=== PATIENT | female | born 1995 | race Caucasian/White ===

== ENCOUNTER 2023-03-23 14:32 | Outpatient (REF) | payer MEDICAID, SELFPAY ==
[2023-03-26 08:28] LABS: TS Negative Control Passed; TS Panel A 0; TS Panel B 0; TS Positive Control Passed; TSpotTB Negative (Negative)
== END 2023-03-23 14:33 | disposition home or self-care (01) ==
LOC: HO.HHCL 14:32
PROVIDERS: Visit Provider General Practice
DX: Z02.1 Encounter for pre-employment examination (principal); E16.2 Hypoglycemia, unspecified; Z11.1 Encounter for screening for respiratory tuberculosis
CPT/HCPCS: 36415; 86481

== ENCOUNTER 2024-04-18 18:39 | Outpatient (REF) | payer MEDICAID, SELFPAY ==
--- OUTSIDE RECORDS SUMMARY | 2024-04-18 20:04 | XMS_ITS | Encounter Summary ---
Author Organization [employer] Address [address] [facility] 7t [place] [address] Care Team Providers Care Flower Arranger Name Role Phone Dahiana Pizano MD Primary Care Provider [phone] Reason for Visit * Reason Comments uti symptoms Encounter Details Date Type Department Care Team ([facility] st Contact Info) Description 04/18/2024 9:00 AM EST Office Visit [facility] [address] [place] [address] Cheo Fofana MD [address] [place] [address] Dysuria (Primary Dx); UTI symptoms Social History Tobacco Use Types Packs/Day Years Used Date Smoking Tobacco: Never Passive Smoke Exposure: Never Smokeless Tobacco: Never Alcohol Use Standard Drinks/Week Comments Never 0 (1 standard drink = 0.6 oz pur e alcohol) Depression Answer Date Recorded Patient Health Questionnaire-9 Score 0 09/02/2023 Patient Health Questionnaire-9 Score 0 09/02/2023 Last PHQ-9: Questionnaire Data Not on file 0 09/02/2023 Housing Stability Answer Date Recorded What is your housing situation today? I have lindseykellie vasquez 09/02/[address] you li ve. Do you have problems with any of the following? None of the above 09/02/2023 Food Insecurity Answer Date Recorded Within the past 12 months, y ou worried that your food would run out before you got money to buy more: Never True 03/11/2023 Within the past 12 months,th e food you bought just didn't last and you didn't have enough money to get more: Never True Transportation Answer Date Recorded In the past 12 months, has l ack of transportation kept you from medical appts, meetings, work or from getting things needed for daily living? No 03/11/2023 Utilities Answer Date Recorded In the past 12 months, has t he electric, gas, oil or water company threatened to shut off services in your home? No 03/11/2023 Depression Answer Date Recorded Patient Health Questionnaire-2 Score 0 09/02/2023 Internet Access Answer Date Recorded Internet Access Q1 No 10/21/2023 Internet Access Q2 Not on file 10/21/2023 Comments Unknown Sex and Gender Information Value Date Recorded Sex Assigned at Female 12/21/2021 10:40 AM EDT Legal Sex Female 10:40 AM EDT Gender Identity Female 12/21/2021 10:40 AM EDT Sexual Orientation Choose not to disclose 2021 10:40 AM EDT documented as of this encounter Last Filed Vital Signs Vital Sign Reading Time Taken Comments Blood Pressure 106/65 04/18/2024 8:42 AM EST Pulse 81 04/18/2024 8:42 AM EST Temperature 36.4 ??C (97.6 ??F) 04/18/2024 8:42 AM ES T Respiratory Rate 18 04/18/2024 8:42 AM EST Oxygen Saturation 99% 04/18/2024 8:42 AM EST Inhaled Oxygen Concentration - - Weight 60.3 kg (133 lb) 04/18/2024 8:42 AM EST Height - - Body Mass Index 25.13 09/02/2023 9:22 AM EDT documented in this encounter Progress Notes * Cheo Fofana MD - 04/18/2024 9:00 AM EST Subjective Patient ID: Rosaline Chow is a 28 y.o. female. HPI Rosaline had onset last night of urinary urgency, frequency, burning. Denies fever, chills, n/v, vaginal discharge, abdominal or flank pain. Lives with 3 children. LMP=[id number] Works as [employer]. Never smoked. Patient Active Problem List Diagnosis Pre-employment examination Low back pain at multiple sites Encounter for preventative adult health care examination The following portions of the chart were reviewed this encounter and updated as appropriate: Tobacco Allergies Meds Problems Med Hx Surg Hx Fam Hx Review of Systems Constitutional: Negative for fever. Respiratory: Negative for shortness of breath. Cardiovascular: Negative for chest pain. Gastrointestinal: Negative for abdominal pain. Genitourinary: Positive for dysuria, frequency and urgency. Negative for flank pain and vaginal discharge. Skin: Negative for rash. Neurological: Negative for headaches. Objective Physical Exam Constitutional: Appearance: Normal appearance. HENT: Right Ear: Tympanic membrane, ear canal and external ear normal. Left Ear: Tympanic membrane, ear canal and external ear normal. Nose: Nose normal. Mouth/Throat: Mouth: Mucous membranes are moist. Pharynx: Oropharynx is clear. Eyes: Conjunctiva/sclera: Conjunctivae normal. Pupils: Pupils are equal, round, and reactive to light. Cardiovascular: Rate and Rhythm: Normal rate and regular rhythm. Heart sounds: No murmur heard. Pulmonary: Effort: Pulmonary effort is normal. Breath sounds: Normal breath sounds. Abdominal: General: Abdomen is flat. Palpations: Abdomen is soft. Tenderness: There is no abdominal tenderness. There is no right CVA tenderness or left CVA tenderness. Musculoskeletal: General: Normal range of motion. Cervical back: No tenderness. Skin: Findings: No rash. Neurological: Mental Status: She is alert. Gait: Gait is intact. Psychiatric: Mood and Affect: Mood normal. Behavior: Behavior normal. Procedures Assessment/Plan Diagnoses and all orders for this visit: Dysuria U/a: + nitrite, blood, marissa. Urine C&S pending. Prescribed Macrobid and Pyridium. Return to clinic if not improving. UTI symptoms- POCT urinalysis dipstick manually resulted - Culture, Urine, Routine Other orders - nitrofurantoin, macrocrystal-monohydrate, (Macrobid) 100 MG capsule; Take 1 capsule (100 mg) by mouth 2 times daily for 5 days. - phenazopyridine (Pyridium) 200 MG tablet; Take 1 tablet (200 mg) by mouth with breakfast, with lunch, and with evening meal for 2 days. documented in this encounter Plan of Treatment Scheduled Orders Name Type Priority Associated Diagnoses Orde r Schedule Culture, Urine, Routine Microbiology Routine UTI symptoms Ordered: 04/18/2024 documented as of this encounter Procedures Procedure Name Priority Date/Time Associated Diagnosis Comments POCT URINALYSIS DIPSTICK Routine 04/18/2024 8:51 AM EST UTI symptoms documented in this encounter Results * (ABNORMAL) POCT urinalysis dipstick manually resulted (04/18/2024 8:51 AM EST) Color, UA Yellow Clarity, UA Clear Glucose, UA Negative Bilirubin, UA Negative Ketones, UA Negative Spec Grav, UA 1.010 Blood, UA Positive(A) Negative, None Detected Comment:small pH, UA 6.0 Protein, UA Negative Urobilinogen, UA 0.2 Leukocytes, UA Few 15(A) Negative, Rare, Trace Comment:small Nitrite, UA Positive(A) Negative, None Detected QC Media Lot # [id number] Lot# Expiration Date Urine 04/18/2024 8:51 AM EST Cheo Fofana MD POINT OF CARE TEST ENTER/EDIT OR DERABLES Final Result documented in this encounter Visit Diagnoses Diagnosis Dysuria- Primary UTI symptoms documented in this encounter Additional Health Concerns Assessment Noted Time PHQ-9 Depression Total Score: 0 09/02/19 24 9:23 AM EDT documented as of this encounter Care Teams Flower Arranger Relationship Specialty Start Date End Date Dahiana Pizano MD [address] [place] [id number] PCP - General Family Medicine 03/23/23 documented as of this encounter
--- OUTSIDE RECORDS SUMMARY | 2024-04-18 20:04 | XMS_ITS | Encounter Summary ---
Author Organization [employer] [facility] Address [address] [place] [address] 7 [place] [address] Care Team Providers Care Truck Crane Operator Name Role Phone Dahiana Pizano MD Primary Care Provider [phone] Encounter Details Date Type Department Care Team ([facility] st Contact Info) Description 04/23/2022 Abstract [facility] [address] [place] [address] Dylan Weathers DDS [address] [place] [address] Social History Tobacco Use Types Packs/Day Years Used Date Smoking Tobacco: Never Passive Smoke Exposure: Never Smokeless Tobacco: Never Alcohol Use Standard Drinks/Week Comments Never 0 (1 standard drink = 0.6 oz pur e alcohol) Comments Unknown Sex and Gender Information Value Date Recorded Sex Assigned at Female 12/21/2021 10:40 AM EDT Legal Sex Female 10:40 AM EDT Gender Identity Female 12/21/2021 10:40 AM EDT Sexual Orientation Choose not to disclose 2021 10:40 AM EDT COVID-19 Exposure Response Date Recorded In the last 10 days, have yo u been in contact with someone who was confirmed or suspected to have Coronavirus/COVID-19? No / Unsure 03/31/2022 1:03 PM EST documented as of this encounter Plan of Treatment Not on file documented as of this encounter Visit Diagnoses Not on filedocumented in this encounter Care Teams Truck Crane Operator Relationship Specialty Start Date End Date Dahiana Pizano MD [address] [place] [address] PCP - General Family Medicine 03/23/23 documented as of this encounter
--- OUTSIDE RECORDS SUMMARY | 2024-04-18 20:04 | XMS_ITS | Clinical Summary ---
Author Organization [employer] Address [address] [facility] 7t [place] [address] Care Team Providers Care Wheelchair Van Driver Name Role Phone Dahiana Pizano MD Primary Care Provider [phone] Allergies No known active allergies Medications chlorhexidine (Periogard) 0.12 % solution Place 15 mL into mouth between cheek and gum every 12 (twelve) hours. 09/17/2021 Active nitrofurantoin, macrocrystal-mo nohydrate, (Macrobid) 100 MG capsule Take 1 capsule (100 mg) by mouth 2 times daily for 5 days. 10 capsule 04/18/2024 5 Active phenazopyridine (Pyridium) 200 MG tablet Take 1 tablet (200 mg) by mouth with breakfast, with lunch, and with evening meal for 2 days. 6 tablet 04/18/2024 5 Active Active Problems Problem Noted Date Diagnosed Date Encounter for preventative adult health care exa gaviotaation 09/02/2023 Assessment & Plan (09/02/2023 10:51 AM EDT): See HPI Pre-employment examination 03/23/2023 Low back pain at multiple sites 03/23/2023 Encounters Date Type Department Care Team Description 04/18/2024 9:00 AM EST Office Visit [facility] [address] [place], [place] [phone] Cheo Fofana MD Dysuria (Primary Dx); UTI symptoms from Last 3 Months Immunizations Name Administration Dates Next Due MMR 06/01/2021 Social History Tobacco Use Types Packs/Day Years Used Date Smoking Tobacco: Never Passive Smoke Exposure: Never Smokeless Tobacco: Never Tobacco Cessation:Counseling Given: No Alcohol Use Standard Drinks/Week Comments Never 0 (1 standard drink = 0.6 oz pur e alcohol) Depression Answer Date Recorded Patient Health Questionnaire-9 Score 0 09/02/2023 Patient Health Questionnaire-9 Score 0 09/02/2023 Last PHQ-9: Questionnaire Data Not on file 0 09/02/2023 Housing Stability Answer Date Recorded What is your housing situation today? I have lindsey vasquez 09/02/[address] you [...] not to disclose 2021 10:40 AM EDT Last Filed Vital Signs Vital Sign Reading Time Taken Comments Blood Pressure 106/65 04/18/2024 8:42 AM EST Pulse 81 04/18/2024 8:42 AM EST Temperature 36.4 ??C (97.6 ??F) 04/18/2024 8:42 AM ES T Respiratory Rate 18 04/18/2024 8:42 AM EST Oxygen Saturation 99% 04/18/2024 8:42 AM EST Inhaled Oxygen Concentration - - Weight 60.3 kg (133 lb) 04/18/2024 8:42 AM EST Height 154.9 cm (5' 1 ) 09/02/2023 9:22 AM EDT Body Mass Index 25.13 09/02/2023 9:22 AM EDT Plan of Treatment Health Maintenance Due Date Last Done Comments Dental Oral Exam 1995 Dental Prophylaxis 1995 Dental X-Ray: Bitewings 1995 Dental X-Ray: Full Mouth 1995 HIV Screening 1995 Family Planning (PISQ) 09/02/2010 Hepatitis C Screening 09/02/2013 DTaP/Tdap/Td Vaccines (1 - Tdap) 09/02/2014 Hepatitis B Vaccines (1 of 3 - 19+ 3-dose series) 09/02/2014 Pap Smear 09/02/2016 COVID-19 Vaccine (1 - 2023-2 5 season) 2023 Influenza Vaccine (#1) 2023 Alcohol/Substance Use Screening 09/01/2024 09/02/2023 Depression Screening 09/01/2024 09/02/2023, 09/02/2023 SDOH Screening 09/01/2024 09/02/2023 Tobacco Screening 04/18/2025 04/18/2024 Zoster Vaccines (1 of 2) 09/02/2045 RSV Patients and Patients Aged 60 years or older (1 - 1-dose 75+ series) 09/02/2070 HIB Vaccines Aged Out No longer eligi ble based on patient's age to complete this topic HPV Vaccines Aged Out No longer eligi ble based on patient's age to complete this topic Hepatitis A Vaccines Aged Out No long er eligible based on patient's age to complete this topic IPV Vaccines Aged Out No longer eligi ble based on patient's age to complete this topic Meningococcal Vaccine Aged Out No seth lexus eligible based on patient's age to complete this topic Pneumococcal Vaccine: Pediatrics (0 to 5 Years) and At-Risk Patients (6 to 49) Years) Aged Out No longer eligible b ased on patient's age to complete this topic RSV under 20 months Aged Out No longe r eligible based on patient's age to complete this topic Rotavirus Vaccines Aged Out No longer eligible based on patient's age to complete this topic Procedures Procedure Name Priority Date/Time Associated Diagnosis Comments POCT URINALYSIS DIPSTICK Routine 04/18/2024 8:51 AM EST UTI symptoms from Last 3 Months Results * (ABNORMAL) POCT urinalysis dipstick manually [...] CARE TEST ENTER/EDIT OR DERABLES Final Result from Last 3 Months Insurance [facility] C3 DENTAL-[facility] MEDICAID STAND ADULT Care Teams Wheelchair Van Driver Relationship Specialty Start Date End Date Dahiana Pizano MD [address] [place] [id number] PCP - General Family Medicine 03/23/23
--- OUTSIDE RECORDS SUMMARY | 2024-04-18 20:04 | XMS_ITS | Clinical Summary ---
Author Organization [facility] Address [address] [place] [address] Care Team Providers Care Paint Preparer Name Role Phone Unavailable Primary Care Provider Unavailabl e Surgical History Surgery Date Site/Laterality Comments OTHER SURGICAL HISTORY PROCEDURE: DENIES PREVIOUS SURGERY Medical History Medical History Date Comments Hypoglycemia DX:Hypoglycemia Vitamin B 12 deficiency DX:Vitam in B 12 deficiency Vitamin D deficiency DX:Vitamin D deficiency Iron deficiency anemia DX:Iron d eficiency anemia Type O blood, Rh positive 2018 DX:Typ e O blood, Rh positive Family History Medical History Relation Name Comments Thyroid disease Brother 1 No Known Problems Brother 2 No Known Problems Father Lung cancer Maternal Grandfather someth ing like that, from smoking too much Diabetes Maternal Grandmother No Known Problems Mother No Known Problems Paternal Grandfather No Known Problems Paternal Grandmother Breast cancer Neg Hx Cervical cancer Neg Hx Ovarian cancer Neg Hx Uterine cancer Neg Hx Relation Name Status Comments Brother 1 Alive Brother 2 Alive Father Alive Maternal Grandfather Maternal Grandmother Mother Alive Paternal Grandfather Paternal Grandmother Social History Tobacco Use Types Packs/Day Years Used Date Smoking Tobacco: Never Smokeless Tobacco: Never Alcohol Use Standard Drinks/Week Comments No 0 (1 standard drink = 0.6 oz pur e alcohol) Comments Unknown Sex and Gender Information Value Date Recorded Sex Assigned at Not on file Legal Sex Female 4:56 AM EST Gender Identity Not on file Sexual Orientation Not on file Obstetrics History Plan of Treatment Health Maintenance Due Date Last Done Comments DTaP,Tdap,and Td Vaccines (1 - Tdap) 09/02/2014 Hepatitis B Vaccines (1 of 3 - 19+ 3-dose series) 09/02/2014 Cervical Cancer Screening: P ap Smear 09/02/2016 COVID-19 Vaccine (2023-2 5 season) 2023 Influenza Vaccine (#1) 2023 HIB Vaccines Aged Out No longer eligi [...] on patient's age to complete this topic MMR Vaccines Aged Out No longer eligi ble based on patient's age to complete this topic Meningococcal ACWY Vaccine Aged Out N o longer eligible based on patient's age to complete this topic Meningococcal B Vacine Aged Out No lo nger eligible based on patient's age to complete this topic Pneumococcal Vaccine: Pediat rics (0 to 5 Years) and At-Risk Patients (6 to 64 Years) Aged Out No longer eligible b ased on patient's age to complete this topic RSV Immunization Patients Un kristi 20 months Aged Out No longer eligible b ased on patient's age to complete this topic Varicella Vaccines Aged Out No longer eligible based on patient's age to complete this topic
== END 2024-04-18 18:40 | disposition home or self-care (01) ==
LOC: HO.HHCLNP 18:39
PROVIDERS: Visit Provider Emergency Medicine
DX: R39.9 Unspecified symptoms and signs involving the genitourinary system (principal)
CPT/HCPCS: 87086; 87088; 87186

== ENCOUNTER 2024-05-29 11:21 | Outpatient (REF) | payer MEDICAID, SELFPAY ==
[2024-05-29 13:54] LABS: Estimated Average Glucose 103 mg/dL; Hemoglobin A1C 113.1704 umol/L; Hemoglobin A1c % 5.2 % (<6.0); Total Hemoglobin (HGBA1C) 3367.7981 umol/L
--- OUTSIDE RECORDS SUMMARY | 2024-05-29 13:56 | XMS_ITS | Clinical Summary ---
Author Organization [employer] [facility] Address [address] [facility] 7 [place] [address] Care Team Providers Care Metal Numerical Control Programmer Name Role Phone Dahiana Pizano MD Primary Care Provider [phone] Allergies No known active allergies Medications chlorhexidine (Periogard) 0.12 % solution Place 15 mL into mouth between cheek and gum every 12 (twelve) hours. 09/17/2021 Active Active Problems Problem Noted Date Diagnosed Date Encounter for preventative adult health care exa mination 09/02/2023 Assessment & Plan (09/02/2023 10:51 AM EDT): See HPI Pre-employment examination 03/23/2023 Low back pain at multiple sites 03/23/2023 Encounters Date Type Department Care Team Description 05/24/2024 Telephone [facility] [address] [place] [phone] Dahiana Pizano MD Lab Orders; Appointment Request 05/04/2024 Population Health Risk Score [facility] (C3) Department [address] [phone] Provider, Population Health Generic 04/18/2024 9:00 AM EST Office Visit [facility] [address] [place], [place] [phone] Cheo Fofana MD Dysuria (Primary Dx); UTI [...] Procedure Name Priority Date/Time Associated Diagnosis Comments HEMOGLOBIN A1C Routine 05/29/2024 11:23 AM EDT Encounter for preventative adult health care examination CULTURE, URINE, ROUTINE Routine 04/18/2024 8:53 AM EST UTI symptoms POCT URINALYSIS DIPSTICK Routine 04/18/2024 8:51 AM EST UTI symptoms from Last 3 Months Results * Hemoglobin A1c (05/29/2024 11:23 AM EDT) Hemoglobin A1c 5.2 <6.0 % [facility] Comment:Hemoglobin A1C Refer ence Range Adults: 4.8 - 6.0 % Non diabetic: < 6.0 % Goal: < 7.0 %Additional Action Suggested: > 8.0 %Note: Hemoglobin A1c results are invalid for patients with abnormal amounts of HbF. Blood transfusions may impact the HbA1c concentration in the patient sample. Estimated Average Glucose 103 mg/dL [facility] Comment:eAG = Estimated ave rage glucose which is %A1C expressed asaverage glucose, using the formula of the V1R-AxbenhhTzfypcj Glucose study (ADAG), Diabetes Care, Vol.31,#8,Sep. 2007 Blood Venous blood specimen / Unknown 05/29/2024 11:23 AM EDT 05/29/2024 1:12 PM EDT us Isabel Lino MD LAB BLOOD ORDERABLES Final Result [facility] [address] [place] [phone] * Culture, Urine, Routine (04/18/2024 8:53 AM EST) Urine Urine specimen obtained by clean catch procedure / Unknown 04/18/2024 8:53 AM EST 04/18/2024 6:40 PM EST Comment:UACC Narrative [facility] - 04/20/2024 8:05 AM EST Escherichia coli Quant > 100,000 cfu/mL Escherichia coli: Ampicillin >=32(R) Escherichia coli: Cefazolin (Urine) 4(S) Escherichia coli: Cefepime <=0.12(S) Escherichia coli: Ceftriaxone <=0.25(S) Escherichia coli: Ciprofloxacin <=0.06(S) Escherichia coli: Gentamicin >=16(R) Escherichia coli: Nitrofurantoin <=16(S) Escherichia coli: Trimethoprim/Sulfamethoxazole >=320(R) Specimen Source: Urine clean catch Cheo Fofana MD LAB MICROBIOLOGY - GENERAL ORDER HERRERA Final Result [facility] [address] [place] [phone] * (ABNORMAL) POCT urinalysis dipstick manually resulted [...] Media Lot # [id number] Lot# Expiration Date , Urine 04/18/2024 8:51 AM EST Cheo Fofana MD POINT OF CARE TEST ENTER/EDIT OR DERABLES Final Result from Last 3 Months [facility] Care Teams Metal Numerical Control Programmer Relationship Specialty Start Date End Date Dahiana Pizano MD [address] [place] [phone] PCP - General Family Medicine 03/23/23
--- OUTSIDE RECORDS SUMMARY | 2024-05-29 13:56 | XMS_ITS | Encounter Summary ---
Author Organization [employer] Address [address] [facility] 7 [place] [address] Care Team Providers Care Dinkey Skinner Name Role Phone Dahiana Pizano MD Primary Care Provider [phone] Reason for Visit * Reason Onset Date Comments Lab Orders 05/24/2024 Appointment Request 05/24/2024 Encounter Details Date Type Department Care Team ([facility] st Contact Info) Description 05/24/2024 Telephone [facility] [address] [place] [address] Dahiana Pizano MD [address] [place] [address] Lab Orders; Appointment Request Social History Tobacco Use Types Packs/Day Years [...] AM EDT documented as of this encounter Miscellaneous Notes * Telephone Encounter - Elisa Canales RN - 05/24/2024 11:28 AM EDT Last tb test 2023- negative. Order placed. TC placed to pt., pt. Will come to lab when convenient on a day prior to 3pm, advised pt. Results take 3-5 days and pt. Verbalizes understanding. * Telephone Encounter - Mohsen Kam - 05/24/2024 9:10 AM EDT Tc from pt requesting to get TB test done for work. Contact pt at [phone] documented in this encounter Plan of Treatment Scheduled Orders Name Type Priority Associated Diagnoses Orde r Schedule T-SPOT??.TB Lab Routine Screening examination for pulmonary tuberculosis Expected: 05/24/2024 (Approximate), Expires: 05/24/2025 documented as of this encounter Visit Diagnoses Diagnosis Screening examination for pulmonary tuberculosis documented in this encounter Additional Health Concerns Assessment Noted Time PHQ-9 Depression Total Score: 0 09/02/19 24 9:23 AM EDT documented as of this encounter Care Teams Dinkey Skinner Relationship Specialty Start Date End Date Dahiana Pizano MD [address] [place] [address] PCP - General Family Medicine 03/23/23 documented as of this encounter
--- OUTSIDE RECORDS SUMMARY | 2024-05-29 13:56 | XMS_ITS | Clinical Summary ---
Author Organization [facility] Address [address] [place] [address] Care Team Providers Care Doorperson Or Luggage Porter Name Role Phone Unavailable Primary Care Provider [...] Vaccine (2023-2 5 season) 2023 Influenza Vaccine (Season Ended) 2024 HIB Vaccines Aged Out No longer eligi [...] age to complete this topic Meningococcal B Vaccine Aged Out No l onger eligible based on patient's age to complete [...]
--- OUTSIDE RECORDS SUMMARY | 2024-05-29 13:56 | XMS_ITS | Encounter Summary ---
Author Organization [employer] Address [address] [place] [address] 7 [place] [address] Care Team Providers Care Cell Inspector Name Role Phone Dahiana Pizano MD Primary Care Provider [phone] Encounter Details Date Type Department Care Team ([facility] st Contact Info) Description 04/23/2022 Abstract [facility] [address] [place] [address] Dylan Weathers DDS [address] [place] [address] Social History Tobacco Use Types Packs/Day Years [...] on filedocumented in this encounter Care Teams Cell Inspector Relationship Specialty Start Date End Date Dahiana Pizano MD [address] [place] [address] PCP - General Family Medicine 03/23/23 documented as of this encounter
[2024-05-30 05:15] LABS: HIV AB/AG Nonreactive (Nonreactive); HIV Num 1 0.09 S/CO (0.00-0.99)
[2024-05-30 14:54] LABS: HCV Log PCR <1.18 NOT DETECTED Log IU/mL (NOT DETECTED); HepC Viral Load <15 NOT DETECTED IU/mL (NOT DETECTED)
[2024-06-01 07:33] LABS: TS Negative Control Passed; TS Panel A 0; TS Panel B 0; TS Positive Control Passed; TSpotTB Negative (Negative)
== END 2024-05-29 11:22 | disposition home or self-care (01) ==
LOC: HO.HHCL 11:21
PROVIDERS: Internal Medicine; Visit Provider General Practice
DX: Z00.00 Encounter for general adult medical examination without abnormal findings (principal); Z11.1 Encounter for screening for respiratory tuberculosis
CPT/HCPCS: 36415; 83036; 86481; 87389; 87522

== ENCOUNTER 2024-06-13 13:50 | Outpatient (REF) | payer MEDICAID, SELFPAY ==
[2024-06-13 15:16] LABS: Bacterial Vaginosis PCR POSITIVE (Negative); Candida Group PCR NOT DETECTED (Not Detect); Candida glab krusei PCR NOT DETECTED (Not Detect); Trichomonas vaginalis PCR NOT DETECTED (Not Detect)
--- OUTSIDE RECORDS SUMMARY | 2024-06-13 16:35 | XMS_ITS | Encounter Summary ---
Author Organization [employer] Address [address] [facility] 7t [place] [address] Care Team Providers Care Social Insurance Analyst Name Role Phone Dahiana Pizano MD Primary Care Provider Reason for Visit * Reason Comments uti symptoms Encounter Details Date Type Department Care Team ([facility] st Contact Info) Description 06/13/2024 9:00 AM EDT Office Visit [facility] [address] [place] [address] Cheo Fofana MD [address] [place] [address] Dysuria (Primary Dx); UTI symptoms Social History [...] Sign Reading Time Taken Comments Blood Pressure 106/68 06/13/2024 8:54 AM EDT Pulse 88 06/13/2024 8:54 AM EDT Temperature 36.2 ??C (97.2 ??F) 06/13/2024 8:54 AM ED T Respiratory Rate 17 06/13/2024 8:54 AM EDT Oxygen Saturation 98% 06/13/2024 8:54 AM EDT Inhaled Oxygen Concentration - - Weight 63 kg (139 lb) 06/13/2024 8:54 AM EDT Height - - Body Mass Index 26.26 09/02/2023 9:22 AM EDT documented in this encounter Progress Notes * Cheo Fofana MD - 06/13/2024 9:00 AM EDT Subjective Patient ID: Rosaline Chow is a 28 y.o. female. HPI Rosaline had onset yesterday of urinary urgency, frequency, burning. Denies fever, chills, n/v, vaginal discharge, abdominal or flank pain. Had similar sx 04/18/2024, urine C&S, grew E. coli sensitive to Macrobid which was prescribed. Symptoms resolved. After urinating she wipes from front to back. States she has been having frequent intercourse. Declines condom supply. Lives with 3 children. 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 Never smoked. Patient Active Problem List Diagnosis [...] Physical Exam Constitutional: Appearance: Normal appearance. HENT: Nose: Nose normal. Eyes: Conjunctiva/sclera: Conjunctivae normal. Pupils: Pupils are equal, round, and reactive to light. Cardiovascular: Rate and Rhythm: Normal rate and regular rhythm. Heart sounds: No murmur heard. Pulmonary: Effort: Pulmonary effort is normal. Breath sounds: Normal breath sounds. Abdominal: General: Abdomen is flat. Palpations: Abdomen is soft. Tenderness: There is no right CVA tenderness or left CVA tenderness. Musculoskeletal: General: Normal range of motion. Cervical back: No tenderness. Skin: Findings: No rash. Neurological: Mental Status: She is alert. Gait: Gait is intact. Psychiatric: Mood and Affect: Mood normal. Behavior: Behavior normal. Procedures Assessment/Plan Diagnoses and all orders for this visit: Dysuria Urine C&S, self vaginal swabs for BV panel, CT/GC pending. Prescribed Macrobid. Rosaline has unused prescription of Pyridium from 2 months ago. Return to clinic if not improving. UTI symptoms- POCT urinalysis dipstick manually resulted - Bacterial Vaginosis Panel - Culture, Urine, Routine Other orders - nitrofurantoin, macrocrystal-monohydrate, (Macrobid) 100 MG capsule; Take 1 capsule (100 mg) by mouth 2 times daily for 5 days. documented in this encounter Plan of Treatment Scheduled Orders Name Type Priority Associated Diagnoses Orde r Schedule Culture, Urine, Routine Microbiology Routine UTI symptoms Ordered: 06/13/2024 documented as of this encounter Procedures Procedure Name Priority Date/Time Associated Diagnosis Comments POCT URINALYSIS DIPSTICK Routine 06/13/2024 9:06 AM EDT UTI symptoms BACTERIAL VAGINOSIS PANEL Routine 06/13/2024 8:57 AM EDT UTI symptoms documented in this encounter Results * (ABNORMAL) POCT urinalysis dipstick manually resulted (06/13/2024 9:06 AM EDT) Color, UA Yellow Clarity, UA Clear Glucose, UA Negative Bilirubin, UA Negative Ketones, UA Negative Spec Grav, UA 1.010 Blood, UA Negative Negative, None Detected pH, UA 6.5 Protein, UA Negative Urobilinogen, UA 0.2 Leukocytes, UA Trace Negative, Rare, Trace Nitrite, UA Positive(A) Negative, None Detected Urine 06/13/2024 9:06 AM EDT us Cheo Fofana MD POINT OF CARE TEST ENTER/EDIT OR DERABLES Final Result * (ABNORMAL) Bacterial Vaginosis Panel (06/13/2024 8:57 AM EDT) TRICHOMONAS VAGINALIS DETECTION BY PCR NOT DETECTED Not Detect [facility] BACTERIAL VAGINOSIS DETECTION BY PCR POSITIVE(A) Negative [facility] Comment:The BV organism targ ets of the Xpert Xpress MVP test can becommensal in women; Xpert Xpress MVP positive results forbacterial vaginosis should be considered in conjunction withother clinical and patient information to determine thedisease status. Organisms that are not detected by the XpertXpress MVP test have also been reported to be associatedwith BV and aerobic vaginitis.The Xpert Xpress MVP test performance has not been evaluatedin patients under the age of 14. EVELYN GROUP DETECTION BY PCR NOT DETECTED Not Detect [facility] Evelyn glab krusei PCR NOT DETECTED Not Detect [facility] Swab Vaginal structure / Unknown 06/13/2024 8:57 AM EDT 06/13/2024 1:51 PM EDT us Cheo Fofana MD LAB MICROBIOLOGY - GENERAL ORDER HERRERA Final Result [facility] [address] [place] [phone] documented in this encounter Visit Diagnoses Diagnosis Dysuria- Primary UTI symptoms documented in this encounter Additional Health Concerns Assessment Noted Time PHQ-9 Depression Total Score: 0 09/02/19 24 9:23 AM EDT documented as of this encounter Care Teams Social Insurance Analyst Relationship Specialty Start Date End Date Dahiana Pizano MD [address] [place] [phone] PCP - General Family Medicine 03/23/23 documented as of this encounter
--- OUTSIDE RECORDS SUMMARY | 2024-06-13 16:35 | XMS_ITS | Clinical Summary ---
Author Organization [facility] Address [address] [place] [address] Care Team Providers Care Computer Animator Name Role Phone Unavailable Primary Care Provider [...]
--- OUTSIDE RECORDS SUMMARY | 2024-06-13 16:35 | XMS_ITS | Clinical Summary ---
Author Organization [employer] Address [address] [facility] 7 [place] [address] Care Team Providers Care Bark Skinner Name Role Phone Dahiana Pizano MD Primary Care Provider [phone] Allergies No known active allergies Medications chlorhexidine (Periogard) 0.12 % solution Place 15 mL into mouth between cheek and gum every 12 (twelve) hours. 09/17/2021 Active nitrofurantoin, macrocrystal-mo nohydrate, (Macrobid) 100 MG capsule Take 1 capsule (100 mg) by mouth 2 times daily for 5 days. 10 capsule 06/13/2024 Active Active Problems Problem Noted Date Diagnosed Date Encounter for preventative adult health care exa mination 09/02/2023 Assessment & Plan (09/02/2023 10:51 AM EDT): See HPI Pre-employment examination 03/23/2023 Low back pain at multiple sites 03/23/2023 Encounters Date Type Department Care Team Description 06/13/2024 9:00 AM EDT Office Visit [facility] [address] [place], [place] [phone] Cheo Fofana MD Dysuria (Primary Dx); UTI symptoms 06/13/2024 Travel 05/24/2024 Telephone [facility] [address] [place], [place] [phone] Dahiana Pizano MD Lab Orders; Appointment Request 05/04/2024 Population Health Risk Score [facility] ([facility]) Department [address] [phone] Provider, Population Health Generic 04/18/2024 9:00 AM EST Office Visit [facility] [address] [place] [phone] Cheo Fofana MD Dysuria (Primary Dx); UTI [...] (139 lb) 06/13/2024 8:54 AM EDT Height 154.9 cm (5' 1 ) 09/02/2023 9:22 AM EDT Body Mass Index 26.26 09/02/2023 9:22 AM EDT Plan of Treatment Health Maintenance Due Date Last Done Comments Dental Oral Exam 1995 Dental Prophylaxis 1995 Dental X-Ray: Bitewings 1995 Dental X-Ray: Full Mouth 1995 Family Planning (PISQ) 09/02/2010 DTaP/Tdap/Td Vaccines (1 - Tdap) 09/02/2014 Hepatitis B Vaccines (1 of 3 - 19+ 3-dose series) 09/02/2014 Pap Smear 09/02/2016 COVID-19 Vaccine ( - 2023-2 5 season) 2023 Influenza Vaccine (#1) 2023 Alcohol/Substance Use Screening 09/01/2024 09/02/2023 Depression Screening 09/01/2024 09/02/2023, 09/02/2023 SDOH Screening 09/01/2024 09/02/2023 Tobacco Screening 06/13/2025 06/13/2024 Zoster Vaccines (1 of 2) 09/02/2045 RSV Patients and Patients Aged 60 years or older (1 - 1-dose 75+ series) 09/02/2070 HIV Screening Completed 05/29/2024 Hepatitis C Screening Completed 05/29/2024 HIB Vaccines Aged Out No longer eligi [...] Routine 06/13/2024 8:57 AM EDT UTI symptoms HEPATITIS C VIRAL RNA, QUANTITATIVE, REAL-TIME PCR Routine 05/29/2024 12:23 PM EDT Encounter for preventative adult health care examination T-SPOT(R).TB Routine 05/29/2024 11:23 AM EDT Screening examination for pulmonary tuberculosis HIV 1/2 ANTIGEN/ANTIBODY, FOURTH GENERATION W/RFL Routine 05/29/2024 11:23 AM EDT Encounter for preventative adult health care examination HEMOGLOBIN A1C Routine 05/29/2024 11:23 AM EDT Encounter for preventative adult health care examination CULTURE, URINE, ROUTINE Routine 04/18/2024 8:53 AM EST UTI symptoms POCT URINALYSIS DIPSTICK Routine 04/18/2024 8:51 AM EST UTI symptoms from Last 3 Months Results * (ABNORMAL) POCT urinalysis dipstick manually resulted (06/13/2024 9:06 AM EDT) Only the most recent of2 resultswithin the time period is included. Color, UA Yellow Clarity, UA Clear Glucose, [...] DETECTION BY PCR NOT DETECTED Not Detect [facility] BACTERIAL VAGINOSIS DETECTION BY PCR POSITIVE(A) Negative [facility] Comment:The BV organism targ ets of [...] DETECTION BY PCR NOT DETECTED Not Detect [facility] Evelyn glab krusei PCR NOT DETECTED Not Detect [facility] Swab Vaginal structure / Unknown 06/13/2024 8:57 AM EDT 06/13/2024 1:51 PM EDT us Cheo Fofana MD LAB MICROBIOLOGY - GENERAL ORDER HERRERA Final Result [facility] [address] [place] [phone] * Hepatitis C Viral RNA, Quantitative, Real-Time PCR (05/29/2024 12:23 PM EDT) Hepatitis C Viral Load <15 NOT DETECTED NOT DETECTED IU/mL [facility] HCV Log PCR <1.18 NOT DETECTED NOT DETECTED Log IU/mL [facility] Comment:For additional infor mation, please refer tohttp://education.[employer]/faq/XGK69p6(This link is being provided for informational/educational purposes only.)THIS TEST WAS PERFORMED AT:[employer] [place] [id number] GUERRERO MD Blood 05/29/2024 12:2 3 PM EDT 05/29/2024 1:12 PM EDT Isabel Lino MD LAB BLOOD ORDERABLES Final Result [facility] [address] [place] [phone] * T-SPOT??.TB (05/29/2024 11:23 AM EDT) T Spot TB Negative Negative [facility] Comment:A negative test resu lt does not exclude the possibilityof exposure to or infection with Mycobacteriumtuberculosis (M. tuberculosis). Patients with recentexposure to TB infected individuals exhibiting anegative T-SPOT.TB result should be considered forretesting within 6 weeks or if other relevant clinicalsymptoms indicate. Results from T-SPOT.TB testing mustbe used in conjunction with each individual'sepidemiological history, current medical status,and results of other diagnostic evaluations.The T-SPOT.TB test is qualitative and results arereported as positive, borderline, or negative, giventhat the test controls perform as expected. In linewith the Centers for Disease Control and Prevention's2010 recommendation to report quantitative measurementsalongside the qualitative result, the laboratoryprovides spot counts for informational purposes only.The T-SPOT.TB test should not be interpreted as aquantitative test. TS PANEL A 0 [facility] TS PANEL B 0 [facility] Negative Control Passed [facility] Positive Control Passed [facility] Comment:For additional infor abena, please refer tohttp://education.[employer]/faq/POL392(This link is being provided for informational/educational purposes only.)THIS TEST WAS PERFORMED AT:[id number] [place] [id number] DIAZ MD,PHD 05/29/2024 11:2 3 AM EDT 05/29/2024 1:12 PM EDT us Dahiana Pizano MD LAB BLOOD ORDERABLES Final Res ult Performing Organization Address City/[facility]/ZIP Co de Phone Number [facility] [address] [place] [phone] * HIV-1/2 Antigen and Antibodies, Fourth Generation, with Reflexes (05/29/2024 11:23 AM EDT) [facility] HIV AB/AG Nonreactive Nonreactive [facility] Comment:HIV-1 p24 Ag and/or HIV-1/HIV-2 Ab not detected.A test result that is nonreactive does not exclude thepossibility of exposure to or infection with HIV-1 and/orHIV-2. Nonreactive results in this assay for individualswith prior exposure to HIV-1 and/or HIV-2 may be due toantigen and antibody levels that are below the limit ofdetection of this assay.[employer] HIV Ag/Ab Combo assay result andsupplemental assay results should be interpreted inconjunction with the patient's clinical presentation,history and other laboratory results. If the results areinconsistent with clinical evidence, additional testing issuggested to confirm the result. Blood Venous blood specimen / Unknown 05/29/2024 11:23 AM EDT 05/29/2024 1:12 PM EDT us Isabel Lino MD LAB BLOOD ORDERABLES Final Result Performing Organization Address [facility]/ZIP Co de Phone Number [facility] [address] [place] [phone] * Hemoglobin A1c (05/29/2024 11:23 AM EDT) Pathologist [facility] Hemoglobin A1c 5.2 <6.0 % [facility] Comment:Hemoglobin A1C Refer ence Range Adults: 4.8 - 6.0 % Non diabetic: < 6.0 % Goal: < 7.0 %Additional Action Suggested: > 8.0 %Note: Hemoglobin A1c results are invalid for patients with abnormal amounts of HbF. Blood transfusions may impact the HbA1c concentration in the patient sample. Estimated Average Glucose 103 mg/dL [facility] Comment:eAG = Estimated ave rage glucose which is %A1C expressed asaverage glucose, using the formula of the C0C-KeysnhlHleeorg Glucose study (ADAG), Diabetes Care, Vol.31,#8,Sep. 2007 Blood Venous blood specimen / Unknown 05/29/2024 11:23 AM EDT 05/29/2024 1:12 PM EDT us Isabel Lino MD LAB BLOOD ORDERABLES Final Result Performing Organization Address [facility] Co de Phone Number [facility] [address] [place] [phone] * Culture, Urine, Routine (04/18/2024 8:53 AM EST) Urine Urine specimen obtained by clean catch procedure / Unknown 04/18/2024 8:53 AM EST 04/18/2024 6:40 PM EST Comment:UACC Narrative [facility] - 04/20/2024 8:05 AM EST Escherichia coli Quant > 100,000 cfu/mL Escherichia coli: Ampicillin >=32(R) Escherichia coli: Cefazolin (Urine) 4(S) Escherichia coli: Cefepime <=0.12(S) Escherichia coli: Ceftriaxone <=0.25(S) Escherichia coli: Ciprofloxacin <=0.06(S) Escherichia coli: Gentamicin >=16(R) Escherichia coli: Nitrofurantoin <=16(S) Escherichia coli: Trimethoprim/Sulfamethoxazole >=320(R) Specimen Source: Urine clean catch us Cheo Fofana MD LAB MICROBIOLOGY - GENERAL ORDER HERRERA Final Result Performing Organization Address [facility] Co de Phone Number [facility] [address] [place] [phone] from Last 3 Months Insurance [place] [facility] MEDICA[facility] STAND ADULT Care Teams Bark Skinner Relationship Specialty Start Date End Date Harinder, Dahiana, MD [address] [place] [address] PCP - General Family Medicine 03/23/23
--- OUTSIDE RECORDS SUMMARY | 2024-06-13 16:35 | XMS_ITS | Encounter Summary ---
Author Organization [employer] Address [address] [facility] [address] [facility] [address] 7t [place] [address] Care Team Providers Care Shank Stapler Name Role Phone Dahiana Pizano MD Primary Care Provider [phone] Encounter Details Date Type Department Care Team (Latest Contact Info) Description 06/13/2024 Travel Social History Tobacco Use Types Packs/Day Years [...] AM EDT documented as of this encounter Plan of Treatment Not on file documented as of this encounter Visit Diagnoses Not on filedocumented in this encounter Additional Health Concerns Assessment Noted Time PHQ-9 Depression Total Score: 0 09/02/19 24 9:23 AM EDT documented as of this encounter Care Teams Shank Stapler Relationship Specialty Start Date End Date Dahiana Pizano MD [address] [place] [phone] PCP - General Family Medicine 03/23/23 documented as of this encounter
--- OUTSIDE RECORDS SUMMARY | 2024-06-13 16:35 | XMS_ITS | Encounter Summary ---
Author Organization [employer] Address [address] [place] [address] 7 [place] [address] Care Team Providers Care Lifestyle Consultant Name Role Phone Dahiana Pizano MD Primary Care Provider [phone] Encounter Details Date Type Department Care Team ([facility] st Contact Info) Description 04/23/2022 Abstract [facility] [address] [place] [address] Dylan Weathers DDS [address] [place] [address] Social History Tobacco Use Types Packs/Day Years [...] on filedocumented in this encounter Care Teams Lifestyle Consultant Relationship Specialty Start Date End Date Dahiana Pizano MD [address] [place] [address] PCP - General Family Medicine 03/23/23 documented as of this encounter
== END 2024-06-13 13:51 | disposition home or self-care (01) ==
LOC: HO.HHCLNP 13:50
PROVIDERS: Visit Provider Emergency Medicine
DX: R39.9 Unspecified symptoms and signs involving the genitourinary system (principal)
CPT/HCPCS: 81515; 87086; 87088; 87186

== ENCOUNTER 2025-01-21 15:51 | Outpatient (REF) | payer MEDICAID, SELFPAY ==
--- OUTSIDE RECORDS SUMMARY | 2025-01-21 15:40 | XMS_ITS | Encounter Summary ---
Author Organization [employer] Address [address] [facility] 7t [place] [address] Care Team Providers Care Judge Name Role Phone Dahiana Pizano MD Primary Care Provider [phone] Encounter Details Date Type Department Care Team ([facility] st Contact Info) Description 01/21/2025 3:40 PM EST Office Visit [facility] [address] [place] [address] Rebeca Baxter MD [address] [place] [address] Acute cystitis with hematuria (Primary Dx); Dysuria; Urinary frequency Social History Tobacco Use Types Packs/Day Years [...] your housing situation today? I have lindsey pedro 09/02/[address] you li [...] Sign Reading Time Taken Comments Blood Pressure 106/66 01/21/2025 3:14 PM EST Pulse 79 01/21/2025 3:14 PM EST Temperature 36.7 C (98.1 F) 01/21/2025 3:14 PM EST Respiratory Rate 24 01/21/2025 3:14 PM EST Oxygen Saturation 99% 01/21/2025 3:14 PM EST Inhaled Oxygen Concentration - - Weight 63.5 kg (140 lb 1.6 oz) 01/21/2025 3:14 P M EST Height 154.9 cm (5' 1 ) 01/21/2025 3:14 PM EST Body Mass Index 26.47 01/21/2025 3:14 PM EST documented in this encounter Progress Notes * Rebeca Baxter MD - 01/21/2025 3:40 PM EST SUBJECTIVE: Rosaline Chow is a 29 y.o. year old female who presents for Walk In Center/UTI sxs. Denies recent illness, injury, or hospitalization. Acute Concerns: Rosaline Chow reports onset of dysuria, malodorous urine, and cloudy urine x 1d. She has a history of recurrent urinary tract infections, with the last episode occurring approximately six months ago. Denies itching or vag discharge. Her LMP was 01/20/25. Social History Social History Narrative Works as LOAN ANALYST, going to school for nursing at [employer] Kids aged 11, 7, 3 Not currently in a relationship, attracted to men Declines STI/contraception currently History of IPV Problem List[1] Family History[2] Review of Systems Constitutional: Negative for chills, fatigue and fever. HENT: Negative for congestion, ear pain, nosebleeds, rhinorrhea, sinus pressure, sore throat and trouble swallowing. Eyes: Negative for pain and discharge. Respiratory: Negative for cough, chest tightness and shortness of breath. Cardiovascular: Negative for chest pain, palpitations and leg swelling. Gastrointestinal: Negative for abdominal pain, blood in stool, constipation, diarrhea and nausea. Endocrine: Negative for polydipsia and polyuria. Genitourinary: Positive for dysuria. Negative for genital sores, pelvic pain and vaginal discharge. Musculoskeletal: Negative for back pain and neck pain. Skin: Negative for rash. Allergic/Immunologic: Negative for environmental allergies. Neurological: Negative for dizziness, seizures, weakness, light-headedness and headaches. Hematological: Negative for adenopathy. Psychiatric/Behavioral: Negative for agitation, behavioral problems, self-injury and suicidal ideas. OBJECTIVE: Vitals: 01/21/25 1514 BP: 106/66 Pulse: 79 Resp: 24 Temp: 98.1 ??F (36.7 ??C) SpO2: 99% Physical Exam HENT: Right Ear: Tympanic membrane and ear canal normal. Left Ear: Tympanic membrane and ear canal normal. Mouth/Throat: Mouth: Mucous membranes are moist. Pharynx: No oropharyngeal exudate or posterior oropharyngeal erythema. Eyes: Pupils: Pupils are equal, round, and reactive to light. Cardiovascular: Rate and Rhythm: Regular rhythm. Pulses: Normal pulses. Heart sounds: Normal heart sounds. No murmur heard. Pulmonary: Breath sounds: Normal breath sounds. Abdominal: General: Bowel sounds are normal. Palpations: Abdomen is soft. Tenderness: There is no abdominal tenderness. Musculoskeletal: General: Normal range of motion. Cervical back: Neck supple. Skin: General: Skin is warm. Neurological: General: No focal deficit present. Mental Status: She is alert and oriented to person, place, and time. Psychiatric: Mood and Affect: Mood normal. Behavior: Behavior normal. Office Visit on 01/21/2025 Component Date Value Ref Range Status Color, UA 01/21/2025 Yellow Final Clarity, UA 01/21/2025 Clear Final Glucose, UA 01/21/2025 Negative Final Bilirubin, UA 01/21/2025 Negative Final Ketones, UA 01/21/2025 Negative Final Spec Grav, UA 01/21/2025 1.015 Final Blood, UA 01/21/2025 Positive (A) Negative, None Detected Final large. pt on monthly cycle pH, UA 01/21/2025 5.5 Final Protein, UA 01/21/2025 Negative Final Urobilinogen, UA 01/21/2025 0.2 Final Leukocytes, UA 01/21/2025 Trace Negative, Rare, Trace, 1+ (17), 2+ (35), 3+ (70), Trace (15) Final small Nitrite, UA 01/21/2025 Positive (A) Negative, None Detected Final Appearance, UA 01/21/2025 clear Final QC Media Lot # 01/21/2025 [id number] Final Lot# Expiration Date 01/21/[id number] Final Problem List Items Addressed This Visit Acute cystitis with hematuria - Primary - Prescribed Cefexime x 7d, based on previous urine culture results. - Urine sent for culture to confirm sensitivity; will contact if change in antibiotic is needed. Advised increased fluid intake and cranberry juice. Other Visit Diagnoses Dysuria Relevant Orders POCT Urinalysis (Completed) Culture, Urine, Routine Urinary frequency Relevant Orders POCT Urinalysis (Completed) Culture, Urine, Routine This note was drafted using Ambient (AI) technology. The patient/patient's guardian has been informed and has consented to the use of this technology: Yes No follow-ups on file. Medications Ordered Prior to Encounter[3] [1] Patient Active Problem List Diagnosis Pre-employment examination Low back pain at multiple sites Encounter for preventative adult health care examination BV (bacterial vaginosis) Acute cystitis with hematuria [2] No family history on file. [3] Current Outpatient Medications on File Prior to Visit Medication Sig Dispense Refill chlorhexidine (Periogard) 0.12 % solution Place 15 mL into mouth between cheek and gum every 12 (twelve) hours. No current facility-administered medications on file prior to visit. documented in this encounter Miscellaneous Notes * Assessment & Plan Note - Rebeca Baxter MD - 01/21/2025 3:41 PM EST Associated Problem(s): Acute cystitis with hematuria - Prescribed Cefexime x 7d, based on previous urine culture results. - Urine sent for culture to confirm sensitivity; will contact if change in antibiotic is needed. Advised increased fluid intake and cranberry juice. documented in this encounter Plan of Treatment Scheduled Orders Name Type Priority Associated Diagnoses Orde r Schedule Culture, Urine, Routine Microbiology Routine Dysuria Urinary frequency Expected: 01/21/2025 (Approximate), Expires: 01/21/2026 documented as of this encounter Procedures Procedure Name Priority Date/Time Associated Diagnosis Comments POCT URINALYSIS DIPSTICK Routine 01/21/2025 3:35 PM EST Dysuria Urinary frequency documented in this encounter Results * (ABNORMAL) POCT Urinalysis (01/21/2025 3:35 PM EST) Color, UA Yellow Clarity, UA Clear Glucose, UA Negative Bilirubin, UA Negative Ketones, UA Negative Spec Grav, UA 1.015 Blood, UA Positive(A) Negative, None Detected Comment:large. pt on monthly cycle pH, UA 5.5 Protein, UA Negative Urobilinogen, UA 0.2 Leukocytes, UA Trace Negative, Rare, Trace, 1+ (17), 2+ (35), 3+ (70), Trace (15) Comment:small Nitrite, UA Positive(A) Negative, None Detected Appearance, UA clear QC Media Lot # [id number] Lot# Expiration Date ,026 Urine (Urine, Random) 01/21/2025 3:35 PM EST us Rebeca Baxter MD POINT OF CARE TEST ENTER /EDIT ORDERABLES Final Result documented in this encounter Visit Diagnoses Diagnosis Acute cystitis with hematuria- Primary Dysuria Urinary frequency documented in this encounter Additional Health Concerns Assessment Noted Time PHQ-9 Depression Total Score: 0 07/12/20 24 9:23 AM EDT documented as of this encounter Care Teams Judge Relationship Specialty Start Date End Date Dahiana Pizano MD [address] [place] [address] PCP - General Family Medicine 03/23/23 documented as of this encounter
--- OUTSIDE RECORDS SUMMARY | 2025-01-22 13:55 | XMS_ITS | Encounter Summary ---
Author Organization [employer] Address [address] [facility] 7t [place] [address] Care Team Providers Care Adult School Counselor Name Role Phone Dahiana Pizano MD Primary Care Provider [phone] Reason for Visit * Reason Onset Date Comments Medication Problem 01/21/2025 Encounter Details Date Type Department Care Team ([facility] st Contact Info) Description 01/21/2025 Refill [facility] [address] [place] [address] Deisy Bender FNP [address] [place] [address] Social History Tobacco Use Types Packs/Day Years [...] encounter Miscellaneous Notes * Telephone Encounter - Alix Camargo RN - 01/21/2025 6:08 PM EST Patient presents to walk in [place] states that [facility] pharmacy keeps telling her that meds were never sent to [facility] in chart Dr Stewart sent Cefixime 400 once a day for 7 days, spoke to extended provider who will send medication to [facility] pharmacy on [facility] in [place] documented in this encounter Plan of Treatment Not on file documented as of this encounter Visit Diagnoses Not on filedocumented in this encounter Additional Health Concerns Assessment Noted Time PHQ-9 Depression Total Score: 0 09/02/19 24 9:23 AM EDT documented as of this encounter Care Teams Adult School Counselor Relationship Specialty Start Date End Date Dahiana Pizano MD [address] [place] [address] PCP - General Family Medicine 03/23/23 documented as of this encounter
--- OUTSIDE RECORDS SUMMARY | 2025-01-22 13:55 | XMS_ITS | Encounter Summary ---
Author Organization [employer] Address [address] [place] [address] 7 [place] [address] Care Team Providers Care Inbound Customer Service Representative Name Role Phone Dahiana Pizano MD Primary Care Provider [phone] Encounter Details Date Type Department Care Team ([facility] st Contact Info) Description 04/23/2022 [facility] [address] [place] [address] Dylan Weathers DDS [address] [place] [address] Social History Tobacco Use Types Packs/Day Years [...] on filedocumented in this encounter Care Teams Inbound Customer Service Representative Relationship Specialty Start Date End Date Dahiana Pizano MD [address] [place], [place] [phone] PCP - General Family Medicine 03/23/23 documented as of this encounter
--- OUTSIDE RECORDS SUMMARY | 2025-01-22 13:55 | XMS_ITS | Clinical Summary ---
Author Organization [employer] Address [address] [facility] 7 [place] [address] Care Team Providers Care Group Worker Name Role Phone Dahiana Pizano MD Primary Care Provider [phone] Allergies No known active allergies Medications chlorhexidine (Periogard) 0.12 % solution Place 15 mL into mouth between cheek and gum every 12 (twelve) hours. 2 Active cefixime (Suprax) capsule Take 1 capsule (400 mg) by mouth Once per day for 7 days. 7 capsule 5 01/29/20 25 Active nitrofurantoin , macrocrystal-m onohydrate, (Macrobid) 100 MG capsule Take 1 capsule (100 mg) by mouth 2 times daily for 5 days. 10 capsule 5 01/28/20 25 Active cefixime (Suprax) capsule Take 1 capsule (400 mg) by mouth Once per day for 7 days. 7 capsule 5 01/22/20 25 Discontinued Active Problems Problem Noted Date Diagnosed Date Acute cystitis with hematuria 01/21/2025 Assessment & Plan (01/21/2025 3:41 PM EST): - Prescribed Cefexime x 7d, based on previous urine culture results. - Urine sent for culture to confirm sensitivity; will contact if change in antibiotic is needed. Advised increased fluid intake and cranberry juice. BV (bacterial vaginosis) 06/13/2024 Encounter for preventative adult health care exa mination 09/02/2023 Assessment & Plan (09/02/2023 10:51 AM EDT): See HPI Pre-employment examination 03/23/2023 Low back pain at multiple sites 03/23/2023 Encounters Date Type Department Care Team Description 01/22/2025 Orders Only [facility] [address] [place] [address] Dahiana Pizano MD 01/21/2025 3:40 PM EST Office Visit [facility] [address] [place] [address] Rebeca Baxter MD Acute cystitis with hematuria (Primary Dx); Dysuria; Urinary frequency 01/21/2025 Orders Only [facility] [address] [address] Deisy Bender FNP 01/21/2025 Refill [facility] [address] [address] Deisy Bender FNP 01/21/2025 Refill [facility] [address] [address] Rebeca Baxter MD 01/21/2025 Travel 12/06/[address] [address] Dahiana Pizano MD No Show 12/03/[address] [address] Rebeca Baxter MD Chart prep 11/28/2024 Patient Outreach [address] [address] Dahiana Pizano MD Pre-visit Planning ((Unable to reach for PVP screening, LVM) to be completed in office ) from Last 3 Months Immunizations Immunization Administration Dates Next Due MMR 06/01/2021 Social [...] Mass Index 26.47 01/21/2025 3:14 PM EST Plan of Treatment Health Maintenance Due Date Last Done Comments Dental Oral Exam 1995 Dental Prophylaxis 1995 Dental X-Ray: Bitewings 1995 Disability Screening 1995 Alcohol/Substance Use Screening 2007 Family Planning (PISQ) 09/02/2010 HPV Vaccines (1 - 3-dose series) 09/02/2010 DTaP/Tdap/Td Vaccines (1 - Tdap) 09/02/2014 Hepatitis B Vaccines (1 of 3 - 19+ 3-dose series) 09/02/2014 Pap Smear 09/02/2016 Depression Screening 09/01/2024 09/02/2023, 09/02/2023 SDOH Screening 09/01/2024 09/02/2023 COVID-19 Vaccine (1 - 2024-2 6 season) 2024 Influenza Vaccine (#1) 2024 Dental X-Ray: Full Mouth 06/01/2025 05/31/2022 Tobacco Screening 01/21/2026 01/21/2025 Zoster Vaccines (1 of 2) 09/02/2045 RSV [...] Years) and At-Risk Patients (6 to 49) Years Aged Out No longer eligible b ased [...] 01/21/2025 3:35 PM EST Dysuria Urinary frequency HEPATITIS C VIRAL RNA, QUANTITATIVE, REAL-TIME PCR Routine 05/29/2024 12:23 PM EDT Encounter for preventative adult health care examination HIV 1/2 ANTIGEN/ANTIBODY, FOURTH GENERATION W/RFL Routine 05/29/2024 11:23 AM EDT Encounter for preventative adult health care examination from Last 3 Months or Most Recently Relevant to Health Maintenance Results * (ABNORMAL) POCT Urinalysis (01/21/2025 3:35 [...] Media Lot # [id number] Lot# Expiration Date Urine (Urine, Random) 01/21/2025 3:35 PM EST Rebeca Baxter MD POINT OF CARE TEST ENTER /EDIT ORDERABLES Final Result * Hepatitis C Viral RNA, Quantitative, Real-Time PCR (05/29/2024 12:23 PM EDT) Hepatitis C Viral Load <15 NOT DETECTED NOT DETECTED IU/mL [facility] HCV Log PCR <1.18 NOT DETECTED NOT DETECTED Log IU/mL [facility] Comment:For additional infor abena, please refer tohttp://education.[employer]/faq/KKA16b5(This link is being provided for informational/educational purposes only.)THIS TEST WAS PERFORMED AT:[employer] [place] [phone] GUERRERO MD Blood 05/29/2024 12:2 3 PM EDT 05/29/2024 1:12 PM EDT us Isabel Lino MD LAB BLOOD ORDERABLES Final Result Performing Organization Address [facility]/ZIP Co de Phone Number [facility] [address] [place] [address] [phone] * HIV-1/2 Antigen and Antibodies, Fourth Generation, with Reflexes (05/29/2024 11:23 AM EDT) [facility] HIV AB/AG Nonreactive Nonreactive [facility] Comment:HIV-1 p24 Ag and/or HIV-1/HIV-2 Ab not detected.A test result that is nonreactive does not exclude thepossibility of exposure to or infection with HIV-1 and/orHIV-2. Nonreactive results in this assay for individualswith prior exposure to HIV-1 and/or HIV-2 may be due toantigen and antibody levels that are below the limit ofdetection of this assay.The I AM AT HIV Ag/Ab Combo assay result andsupplemental assay results should be interpreted inconjunction with the patient's clinical presentation,history and other laboratory results. If the results areinconsistent with clinical evidence, additional testing issuggested to confirm the result. Blood Venous blood specimen / Unknown 05/29/2024 11:23 AM EDT 05/29/2024 1:12 PM EDT us Isabel Lino MD LAB BLOOD ORDERABLES Final Result Performing Organization Address City/[facility]/ZIP Co de Phone Number [facility] [address] [place] [address] [phone] from Last 3 Months or Most Recently Relevant to Health Maintenance Insurance [facility] C3 DENTAL-[facility] MEDICAID STAND ADULT Care Teams Group Worker Relationship Specialty Start Date End Date Dahiana Pizano MD [address] [place], [place] PCP - General Family Medicine 03/23/23
--- OUTSIDE RECORDS SUMMARY | 2025-01-22 13:55 | XMS_ITS | Encounter Summary ---
Author Organization [employer] Address [address] [facility] 7 [place] [address] Care Team Providers Care Administrative Services Specialist Name Role Phone Dahiana Pizano MD Primary Care Provider [phone] Reason for Visit * Reason Onset Date Comments Appointment Request 10/04/2024 Encounter Details Date Type Department Care Team ([facility] st Contact Info) Description 10/04/2024 Telephone [facility] [address] [place] [address] Dahiana Pizano MD [address] [place] [address] Appointment Request Social History Tobacco Use Types [...] encounter Miscellaneous Notes * Telephone Encounter - Clover Pham - 10/04/2024 11:06 AM EDT Tc from pt requesting to schedule PE apt , pt on recall . Contact pt at [phone] documented in this encounter Plan of Treatment Not on file documented as of this encounter Visit Diagnoses Not on filedocumented in this encounter Additional Health Concerns Assessment Noted Time PHQ-9 Depression Total Score: 0 09/02/19 24 9:23 AM EDT documented as of this encounter Care Teams Administrative Services Specialist Relationship Specialty Start Date End Date Dahiana Pizano MD [address] [place] [phone] PCP - General Family Medicine 03/23/23 documented as of this encounter
--- OUTSIDE RECORDS SUMMARY | 2025-01-22 13:55 | XMS_ITS | Encounter Summary ---
Author Organization [employer] Address [address] [facility] 7t [place] [address] Care Team Providers Care Food Specialist Name Role Phone Dahiana Pizano MD Primary Care Provider [phone] Encounter Details Date Type Department Care Team ([facility] st Contact Info) Description 01/22/2025 Orders Only [facility] [address] [place], [place] [phone] Dahiana Pizano MD [address] [place], [place] [phone] Social History Tobacco Use Types Packs/Day Years [...] documented as of this encounter Care Teams Food Specialist Relationship Specialty Start Date End Date Dahiana Pizano MD [address] [place] [address] PCP - General Family Medicine 03/23/23 documented as of this encounter
--- OUTSIDE RECORDS SUMMARY | 2025-01-22 13:55 | XMS_ITS | Encounter Summary ---
Author Organization [employer] Address [address] [facility] [address] 7t [place] [address] Care Team Providers Care Director Industrial Relations Name Role Phone Dahiana Pizano MD Primary Care Provider [phone] Encounter Details Date Type Department Care Team ([facility] st Contact Info) Description 01/21/2025 Orders Only [facility] [address] [place] [address] Deisy Bender FNP [address] [place] [address] Social History Tobacco Use Types Packs/Day Years [...] documented as of this encounter Care Teams Director Industrial Relations Relationship Specialty Start Date End Date Dahiana Pizano MD [address] [place] [id number] PCP - General Family Medicine 03/23/23 documented as of this encounter
--- OUTSIDE RECORDS SUMMARY | 2025-01-22 13:55 | XMS_ITS | Encounter Summary ---
Author Organization [employer] Address [address] [facility] 7t [place] [address] Care Team Providers Care Chemical Laboratory Chief Name Role Phone Dahiana Pizano MD Primary Care Provider [phone] Encounter Details Date Type Department Care Team (Latest Contact Info) Description 01/21/2025 Travel Social History Tobacco Use Types Packs/Day [...] documented as of this encounter Care Teams Chemical Laboratory Chief Relationship Specialty Start Date End Date Dahiana Pizano MD [address] [place] [phone] PCP - General Family Medicine 03/23/23 documented as of this encounter
--- OUTSIDE RECORDS SUMMARY | 2025-01-22 13:55 | XMS_ITS | Clinical Summary ---
Author Organization [facility] Address [address] [phone] Phone Care Team Providers Care Bakery Supervisor Name Role Phone Pcp, Not Required Primary Care Provider Unavaila ble Allergies No known active allergies Social History Tobacco Use Types Packs/Day Years Used Date Smoking Tobacco: Never Alcohol Use Standard Drinks/Week Comments Not Currently 0 (1 standard drink = 0.6 oz pur e alcohol) Education Answer Date Recorded Are you interested in more education? Not on tricia e 06/18/2022 Are you concerned about learning? Not on file 06/18/2022 No 06/18/2022 No 06/18/2022 Digital Access Answer Date Recorded No 07/20/2022 No 07/20/2022 Reliable internet access at home? Not on file 07/20/2022 Device with a working camera? Not on file Comments Unknown Sex and Gender Information Value Date Recorded Sex Assigned at Not on file Legal Sex Female 6:33 AM EST Gender Identity Not on file Sexual Orientation Not on file Last Filed Vital Signs Vital Sign Reading Time Taken Comments Blood Pressure 98/50 03/04/2019 6:37 AM EST Pulse 97 03/04/2019 6:37 AM EST Temperature 36.2 C (97.2 F) 03/04/2019 6:37 AM EST Respiratory Rate 16 03/04/2019 6:37 AM EST Oxygen Saturation 99% 03/04/2019 6:37 AM EST Inhaled Oxygen Concentration - - Weight - - Height - - Body Mass Index - - Plan of Treatment Not on file Medical Devices Not on file Insurance [employer] PPO [employer] PPO [employer] PPO [employer] PPO [employer] PPO [employer] PPO [employer] PPO [employer] PPO Care Teams Bakery Supervisor Relationship Specialty Start Date End Date Pcp, Not Required [address] [place] [id number] PCP - General 03/03/19 Additional Source Comments The information contained in this document represents components of the legal health record. It is not the complete legal health record.[facility]
--- OUTSIDE RECORDS SUMMARY | 2025-01-22 13:55 | XMS_ITS | Encounter Summary ---
Author Organization [employer] Address [address] [facility] 7t [place] [address] Care Team Providers Care Plant Scientist Name Role Phone Dahiana Pizano MD Primary Care Provider [phone] Reason for Visit * Reason Comments Med Change Request Encounter Details Date Type Department Care Team ([facility] Contact Info) Description 01/21/2025 Refill [facility] [address] [place] [address] Rebeca Baxter MD [address] [place] [address] Social History Tobacco Use Types Packs/Day Years [...] documented as of this encounter Care Teams Plant Scientist Relationship Specialty Start Date End Date Dahiana Pizano MD [address] [place] [phone] PCP - General Family Medicine 03/23/23 documented as of this encounter
--- OUTSIDE RECORDS SUMMARY | 2025-01-22 13:55 | XMS_ITS | Clinical Summary ---
Author Organization [facility] ity Address [address] [place] [address] Care Team Providers Care Fur Finisher Name Role Phone Unavailable Primary Care Provider [...] Cervical Cancer Screening: P ap Smear 09/02/2016 HPV Vaccines (1 - 3-dose SCD M series) 09/02/2022 Depression Screening 02/22/2024 COVID-19 Vaccine ( - 2024-2 6 season) 2024 Influenza Vaccine (#1) 2024 RSV Immunization Adult Patie nts (1 - 1-dose 75+ series) 09/02/2070 HIB [...] 5 Years) and At-Risk Patients (6 to 49 Years) Aged Out No longer eligible b ased on patient's age to complete this topic RSV Immunization Patients Un kristi 20 months Aged Out No longer eligible b ased on patient's age to complete this topic Varicella Vaccines Aged Out No longer eligible based on patient's age to complete this topic
== END 2025-01-21 15:52 | disposition home or self-care (01) ==
LOC: HO.HHCLNP 15:51
PROVIDERS: Visit Provider Internal Medicine
DX: R30.0 Dysuria (principal); R35.0 Frequency of micturition
CPT/HCPCS: 87086; 87088; 87186